=== PATIENT | female | born 1990 | race Two or more races ===

== ENCOUNTER 2024-11-06 16:40 | Emergency (ER) | payer OTHER ==
[~2024-11-06] VITALS: Ht 170.2 cm; Wt 84.4 kg
[2024-11-06] MEDS ORDERED: CLINDAMYCIN PHOSPHATE 150 MG/ML (900mg) IV STA (18:01)
[2024-11-06] MEDS ORDERED: KETOROLAC TROMETHAMINE 30 MG VIAL IV STA (18:02)
[2024-11-06] MEDS ORDERED: KETOROLAC TROMETHAMINE 30 MG VIAL ONE (18:08)
[2024-11-06] MEDS ORDERED: CLINDAMYCIN PHOSPHATE 150 MG/ML (900mg) ONE (18:08)
[2024-11-06] MEDS ORDERED: CETIRIZINE HCL 5MG/5ML BLIST.PACK PO STA (18:09)
[2024-11-06] MEDS ORDERED: CETIRIZINE HCL 5MG/5ML BLIST.PACK PO ONE (18:11)
[2024-11-06] MEDS ORDERED: CLEOCIN HCL300 MG PO (19:51)
== END 2024-11-06 20:11 | disposition home or self-care (01) ==
LOC: ER 16:41
DX: N61.1 Abscess of the breast and nipple (principal); Z91.013 Allergy to seafood